=== PATIENT | female | born 1985 | race Caucasian/White ===

== ENCOUNTER 2019-04-09 21:46 | Emergency (ER) | payer OTHER ==
[~2019-04-09] VITALS: Ht 157.5 cm; Wt 60.8 kg
[2019-04-09 21:46] VITALS: BP 102/76
--- NOTE | 2019-04-09 22:03 | NUR ---
PT C/O RT FLANK PAIN THAT RADIATES TO MID TO UPPER BACK X1 DAY. PT DENIES TRAUMA. 6/10 SHARP PAIN PROVOKED BY MOVEMENT. PT DENIES URINARY SYMPTOMS. PT DENIES ABD PAIN. LMP 03/03/19. VSS. MEDHX: DENIES ALLERGIES: DENIES
[2019-04-09] MEDS ORDERED: CYCLOBENZAPRINE 10 MG TAB PO ONE (22:50)
[2019-04-09] MEDS ORDERED: KETOROLAC 30 MG/ML VIAL IM ONE (22:50)
[2019-04-10] MEDS ORDERED: HYDROcodone/APAP 5/325 MG 1 TAB TAB PO ONE (00:25)
--- NOTE | 2019-04-10 02:06 | NUR ---
Patient discharged with v/s stable. Written and verbal after care instructions given and explained. Patient verbalized understanding. Ambulatory with steady gait. All questions addressed prior to discharge. Advised to follow up with PMD.
[2019-04-10 02:12] VITALS: BP 112/82
== END 2019-04-10 02:06 | disposition home or self-care (01) ==
LOC: MED 21:46
DX: M54.6 Pain in thoracic spine (principal)
CPT/HCPCS: 71045; 81002; 81025; 96372; 99283; J1885; Q0092